=== PATIENT | female | born 1945 | race Caucasian/White ===

== ENCOUNTER 2016-10-20 07:52 | Day surgery (SDC) | payer OTHER ==
[2016-10-20] MEDS ORDERED: NS 500 ML IV 500 ML IV ONE (08:35)
[2016-10-20] MEDS ORDERED: TETRACAINE 0.5% OPHTH 1 DOSE AFFEYE ONE ×2 (08:40→11:25)
[2016-10-20] MEDS ORDERED: VIGAMOX 0.5% OPHTH 1 DOSE AFFEYE ONE ×5 (08:41→11:55)
[2016-10-20] MEDS ORDERED: PROLENSA OPHTH 1 DOSE AFFEYE ONE (08:53)
[2016-10-20] MEDS ORDERED: ALPHAGAN-P OPHTH 1 DOSE AFFEYE ONE (08:54)
[2016-10-20] MEDS ORDERED: AK-DILATE 2.5% OPHTH 1 DOSE OP ONE ×3 (08:55→09:14)
[2016-10-20] MEDS ORDERED: MYDRIACIL OPHTH 1 DOSE AFFEYE ONE ×3 (08:55→09:14)
[2016-10-20] MEDS ORDERED: CYCLOGYL 1% OPHTH 1 DOSE OP ONE ×3 (08:55→09:14)
[2016-10-20] MEDS ORDERED: VERSED ONE (09:44)
[2016-10-20] MEDS ORDERED: DIPRIVAN VIAL ONE (09:44)
[2016-10-20] MEDS ORDERED: BETADINE OPHTH SOLN 5% EACHEYE ONE (11:25)
[2016-10-20] MEDS ORDERED: DUOVISC IO ONE ×2 (11:33→11:39)
[2016-10-20] MEDS ORDERED: XYLOCAINE-MPF 1% IJ ONE ×2 (11:33→11:39)
[2016-10-20] MEDS ORDERED: ADRENALINE CHL INJ IJ ONE ×2 (11:33→11:39)
[2016-10-20] MEDS ORDERED: BSS OPHTH (PLAIN) 500 ML with VANCOMYCIN HCL 500 MG VIAL 25 MG, ADRENALINE CHL INJ 1 MG IR ONE ×6 (11:36)
[2016-10-20 12:08] VITALS: BP 149/78
== END 2016-10-20 12:08 | disposition home or self-care (01) ==
LOC: SURG1 07:52
PROVIDERS: ATTEND Ophthalmology
PROC: 08RK3JZ Replacement of Left Lens with Synthetic Substitute, Percutaneous Approach (ICD-10-PCS; principal; 2016-10-20 12:00)
PROC: 08DK3ZZ Extraction of Left Lens, Percutaneous Approach (ICD-10-PCS; principal; 2016-10-20 12:00)
DX: H25.12 Age-related nuclear cataract, left eye (principal); H25.012 Cortical age-related cataract, left eye; H25.042 Posterior subcapsular polar age-related cataract, left eye; H52.222 Regular astigmatism, left eye
CPT/HCPCS: A4217; J0170; J2250; J3370; J3490